=== PATIENT | female | born 1950 | race Caucasian/White ===

== ENCOUNTER 2022-04-02 00:30 | Inpatient (IN) | payer OTHER ==
[~2022-04-02] VITALS: Ht 162.6 cm; Wt 59.0 kg
[2022-04-02] MEDS ORDERED: CEFTRIAXONE 1 G in IV DEXTROSE 5% 50 ML IV ONE (00:45)
[2022-04-02] MEDS ORDERED: IV NORMAL SALINE 500 ML BAG IV ONE (00:45)
[2022-04-02 00:49] LABS: HEMATOCRIT 36.5 % (31.2-41.9); MEAN CORPUSCULAR HEMOGLOBIN 29.1 uug (24.7-32.8); MEAN CORPUSCULAR VOLUME 89.9 fL (75.5-95.3); PLATELET COUNT (AUTO) 304 K/uL (179-408)
--- NOTE | 2022-04-02 00:56 | NUR ---
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 #20g established in left ac, blood collected and sent to lab. Patient is alert and oriented x 3, Bedside EKG done awaiting MD review, side rails up will continue to monitor.
[2022-04-02 01:00] LABS: CARBON DIOXIDE 30 mmol/L (21-32); CHLORIDE 102 mmol/L (98-107); CREATININE 1.2 mg/dL (0.6-1.3); GLUCOSE 119 mg/dL (74-106); UREA NITROGEN, BLOOD 23 mg/dL (7-18)
[2022-04-02 01:08] LABS: ALANINE AMINOTRANSFERASE 30 U/L (14-59); ALKALINE PHOSPHATASE 112 U/L (50-136); ASPARTATE AMINOTRANSFERASE 23 U/L (15-37); BILIRUBIN,DIRECT 0.1 mg/dL (0.0-0.2); BILIRUBIN,TOTAL 0.2 mg/dL (0.2-1.0); TOTAL PROTEIN, SERUM 8.2 g/dL (6.4-8.2)
--- NOTE | 2022-04-02 01:23 | NUR ---
Off unit to CT via rney.
[2022-04-02] MEDS ORDERED: IV NS 1000 ML 1,000 ML IV ONE (01:30)
--- NOTE | 2022-04-02 02:02 | NUR ---
Patient returned to unit, IVF infusing as per order, urine collected and sent to lab. made aware of latic of 2.8.
[2022-04-02 02:45] LABS: *BILIRUBIN,URIN NEGATIVE (NEGATIVE); *COLOR,URINE YELLOW (YELLOW); *KETONES,URINE NEGATIVE (NEGATIVE); *UROBILINOGEN,URINE 0.2 E.U./dl (NORMAL); LEUKOCYTE ESTERASE ,URINE 1+ (NEGATIVE); NITRITE, URINE POSITIVE (NEGATIVE); UGLUCOSE NEGATIVE (NEGATIVE)
[2022-04-02 02:47] LABS: *BLOOD, URINE TRACE (NEGATIVE); *CLARITY,URINE HAZY (CLEAR)
[2022-04-02 02:48] LABS: BACTERIA,URINE MANY /HPF (NONE SEEN); SQUAMOUS EPITHELIAL CELL,UR FEW /HPF (NONE SEEN)
--- NOTE | 2022-04-02 03:18 | NUR ---
Incontinet of urine, changed, IVF almost complete. No voiced c/o no s/s of any discomfort noted.
--- NOTE | 2022-04-02 06:14 | NUR ---
Called [facility] for a panel call.
[2022-04-02] MEDS ORDERED: IMIPENEM/CILASTATIN SODIUM 1,000 MG in IV NORMAL SALINE 250 ML IV ONE (06:15)
--- NOTE | 2022-04-02 06:24 | NUR ---
Clinical Trial Assistant call for primaxin.
[2022-04-02] MEDS ORDERED: hydrALAZINE HCL 20 MG/1 ML VIAL IV PRN (06:30)
[2022-04-02] MEDS ORDERED: ONDANSETRON 4 MG/2 ML VIAL IV PRN (06:30)
[2022-04-02] MEDS ORDERED: IV NS 1000 ML 1,000 ML IV SCH (06:30)
[2022-04-02] MEDS ORDERED: ACETAMINOPHEN 325 MG TABLET PO PRN (06:30)
--- NOTE | 2022-04-02 09:25 | NUR ---
Received patient from ER via wheelchair assisted by ER staff. Alert but confused. Denies any pain or shortness of breath. Placed on heart monitor on Sinus Rhythm. Admission assessment initiated.
[2022-04-02] MEDS ORDERED: HEPARIN SODIUM,PORCINE 5,000 UNITS/ML VIAL ONE (09:33)
[2022-04-02] MEDS ORDERED: DOCUSATE SODIUM 100 MG CAPSULE PO ONE (09:33)
[2022-04-02] MEDS: DOCUSATE SODIUM 100 MG CAPSULE PO SCH ×2 (09:37→16:23)
[2022-04-02] MEDS: HEPARIN SODIUM,PORCINE 5,000 UNITS/ML VIAL SQ SCH ×3 (09:38→21:00)
--- NOTE | 2022-04-02 09:50 | NUR ---
Pt refused Heparin 5000units/ml. Explained risks and benefits, pt acknowledged and still refused.
--- NOTE | 2022-04-02 09:54 | NUR ---
Daughter of the pt, Tracy, called. Call back #[phone].
--- NOTE | 2022-04-02 09:56 | NUR ---
Called [facility]rd [facility] to give report. Assigned nurse is unavailable, will call back again in 30mins.
--- NOTE | 2022-04-02 10:33 | NUR ---
Pt in stable condition, V/S WNL, meals taken. Transported to [facility], RM 312, received by Nurse Kalyn LORENZANA.
[2022-04-02] MEDS: IV NS 1000 ML 1,000 ML IV PRN (11:31)
[2022-04-02] MEDS: MEROPENEM 1 G in IV NORMAL SALINE 100 ML IV SCH (11:39)
[2022-04-02 11:47] VITALS: BP 132/76
[2022-04-02] MEDS ORDERED: MEROPENEM 1 G in IV NORMAL SALINE 100 ML IV SCH (14:00)
[2022-04-02] MEDS ORDERED: LOSA1TAB39 PO (15:53)
[2022-04-02] MEDS ORDERED: ASPI-618 PO (15:53)
[2022-04-02] MEDS ORDERED: MULT-1201 PO (15:53)
[2022-04-02] MEDS ORDERED: GLIP5TAB13 PO (15:53)
[2022-04-02] MEDS ORDERED: CALC600T35 PO (15:53)
[2022-04-02] MEDS ORDERED: HYDR25TA4 PO (15:53)
[2022-04-02] MEDS ORDERED: METF-440 PO (15:53)
[2022-04-02] MEDS ORDERED: ATOR40TA PO (15:53)
[2022-04-02] MEDS ORDERED: MEMA10TA56 PO (15:53)
[2022-04-02] MEDS ORDERED: OMEP20CA15 PO (15:53)
[2022-04-02] MEDS ORDERED: DONE10TA44 PO (15:53)
[2022-04-02 16:23] VITALS: BP 110/52
--- NOTE | 2022-04-02 17:09 | NUR ---
Resting comfortably on bed, no signs of increasing confusion, afebrile. Continue IV fluids and IV antibiotics no reaction to antibiotics. Will continue tele monitoring and voiding pattern
[2022-04-02 20:40] VITALS: BP 131/67
[2022-04-03] MEDS: IV NS 1000 ML 1,000 ML IV PRN ×2 (00:19→19:59)
[2022-04-03] MEDS: MEROPENEM 1 G in IV NORMAL SALINE 100 ML IV SCH ×3 (00:20→23:11)
[2022-04-03 00:25] VITALS: BP 127/73
--- NOTE | 2022-04-03 03:57 | NUR ---
Pt voided. Bladder scan done at 0000 210 urine recorded..
[2022-04-03 04:15] VITALS: BP 128/73
--- NOTE | 2022-04-03 07:16 | NUR ---
Pt stable ,voiding, Bladder scan at 0630 is 233.
[2022-04-03 07:25] LABS: HEMATOCRIT 31.8 % (31.2-41.9); MEAN CORPUSCULAR HEMOGLOBIN 29.7 uug (24.7-32.8); MEAN CORPUSCULAR VOLUME 89.6 fL (75.5-95.3); PLATELET COUNT (AUTO) 273 K/uL (179-408)
[2022-04-03 07:39] LABS: BILIRUBIN,TOTAL 0.3 mg/dL (0.2-1.0); CREATININE 0.8 mg/dL (0.6-1.3); PHOSPHOROUS 3.3 mg/dL (2.5-4.9); POTASSIUM 3.7 mmol/L (3.5-5.1); TOTAL PROTEIN, SERUM 6.5 g/dL (6.4-8.2)
--- NOTE | 2022-04-03 08:00 | NUR ---
Received patient lying on bed awake, alert and oriented. No complains made, on room air sating @ 98%. Medications given, needs attended
[2022-04-03] MEDS: HEPARIN SODIUM,PORCINE 5,000 UNITS/ML VIAL SQ SCH ×2 (08:17→20:19)
[2022-04-03] MEDS: DOCUSATE SODIUM 100 MG CAPSULE PO SCH ×2 (08:17→16:39)
[2022-04-03 12:13] VITALS: BP 123/73
[2022-04-03] MEDS ORDERED: LOSA25TA27 PO (13:34)
--- NOTE | 2022-04-03 16:00 | NUR ---
Bladder scan done with 568 of urine, patient incontinent post void of 421 taken and recorded. In and out catheter done to empty the bladder with 400cc of urine collected. Patient stable and comfortable on bed. Denies any pains. plan continue telemetry monitoring SR. Continue with IV antibiotic and in and out as ordered.
[2022-04-03 16:58] VITALS: BP 144/67
[2022-04-03 20:00] VITALS: BP 131/64
[2022-04-03] MEDS: ATORVASTATIN 40 MG TABLET PO SCH (20:19)
[2022-04-03] MEDS: ASPIRIN EC 81 MG TABLET.DR PO SCH (20:19)
[2022-04-03] MEDS: MEMANTINE HCL 10 MG TABLET PO SCH (20:19)
[2022-04-03] MEDS: CALCIUM CARBONATE 600 MG TABLET PO SCH (20:20)
[2022-04-04] VITALS: BP 144/70
[2022-04-04 04:00] VITALS: BP 133/78
--- NOTE | 2022-04-04 06:39 | NUR ---
patient voided well throughout the night. refused bladder scan and refused am labs. on tele SR.
--- NOTE | 2022-04-04 07:51 | NUR ---
Sleeping, appears comfortable. IVF infusing. Tele SR
[2022-04-04] MEDS: DOCUSATE SODIUM 100 MG CAPSULE PO SCH ×2 (08:46→17:37)
[2022-04-04] MEDS: DONEPEZIL 10 MG TABLET PO SCH (08:46)
[2022-04-04] MEDS: LOSARTAN POTASSIUM 25 MG TABLET PO SCH (08:46)
[2022-04-04] MEDS: CALCIUM CARBONATE 600 MG TABLET PO SCH (08:46)
[2022-04-04] MEDS: glipiZIDE 5 MG TABLET PO SCH ×2 (08:46→17:37)
[2022-04-04] MEDS: ASPIRIN EC 81 MG TABLET.DR PO SCH (08:46)
[2022-04-04] MEDS: MEMANTINE HCL 10 MG TABLET PO SCH ×2 (08:47→20:59)
[2022-04-04] MEDS: HEPARIN SODIUM,PORCINE 5,000 UNITS/ML VIAL SQ SCH ×3 (08:47→21:00)
[2022-04-04] MEDS: IV NS 1000 ML 1,000 ML IV PRN ×2 (08:47→22:01)
[2022-04-04] MEDS: HYDROCHLOROTHIAZIDE 25 MG TABLET PO SCH (08:47)
--- NOTE | 2022-04-04 09:40 | NUR ---
Refused Heparin SQ. Initially refused lab draw, does not want needle sticks. Explained necessity, agreed to lab draw.
[2022-04-04 09:44] LABS: HEMATOCRIT 34.2 % (31.2-41.9); MEAN CORPUSCULAR HEMOGLOBIN 28.9 uug (24.7-32.8); PLATELET COUNT (AUTO) 294 K/uL (179-408)
[2022-04-04 09:54] LABS: CREATININE 0.9 mg/dL (0.6-1.3); MAGNESIUM 1.6 mg/dL (1.8-2.4); PHOSPHOROUS 3.3 mg/dL (2.5-4.9)
[2022-04-04 11:04] VITALS: BP 150/69
[2022-04-04] MEDS: MEROPENEM 1 G in IV NORMAL SALINE 100 ML IV SCH ×2 (11:28→23:41)
--- NOTE | 2022-04-04 12:30 | NUR ---
Spouse at bedside; spoke with daughter over the phone; explained plan of care. Adequate water intake given to patient
[2022-04-04] MEDS ORDERED: MAGNESIUM OXIDE 400 MG TABLET PO ONE (14:00)
--- NOTE | 2022-04-04 14:36 | NUR ---
Mg 1.6; magnesium po given as ordered
[2022-04-04 15:20] VITALS: BP 131/64
--- NOTE | 2022-04-04 17:07 | NUR ---
Continent, assisted to the bathroom 3 x with adequate urine output
[2022-04-04] MEDS: GLUCERNA SHAKE 237 ML CAN PO SCH (17:37)
--- NOTE | 2022-04-04 18:24 | NUR ---
Eating fairly, with adequate oral intake. Afebrile.
[2022-04-04 20:00] VITALS: BP 137/69
[2022-04-04] MEDS: ATORVASTATIN 40 MG TABLET PO SCH (20:59)
[2022-04-05] VITALS: BP 132/75
[2022-04-05 04:00] VITALS: BP 135/78
--- NOTE | 2022-04-05 06:30 | NUR ---
Patient slept intermittently, no noted acute distress. Sinus rhythm on tele. Denies chest pain. IV access to LAC intact and patent. Needs assessed and attended to.
[2022-04-05] MEDS: glipiZIDE 5 MG TABLET PO SCH ×2 (07:16→17:01)
[2022-04-05] MEDS: DOCUSATE SODIUM 100 MG CAPSULE PO SCH ×2 (10:07→17:01)
[2022-04-05] MEDS: CALCIUM CARBONATE 600 MG TABLET PO SCH (10:08)
[2022-04-05] MEDS: ASPIRIN EC 81 MG TABLET.DR PO SCH (10:08)
[2022-04-05] MEDS: MEMANTINE HCL 10 MG TABLET PO SCH (10:08)
[2022-04-05] MEDS: HEPARIN SODIUM,PORCINE 5,000 UNITS/ML VIAL SQ SCH (10:09)
[2022-04-05] MEDS: DONEPEZIL 10 MG TABLET PO SCH (10:16)
[2022-04-05] MEDS: HYDROCHLOROTHIAZIDE 25 MG TABLET PO SCH (10:17)
[2022-04-05] MEDS: GLUCERNA SHAKE 237 ML CAN PO SCH (10:17)
[2022-04-05] MEDS: LOSARTAN POTASSIUM 25 MG TABLET PO SCH (10:17)
[2022-04-05 10:44] LABS: MEAN CORPUSCULAR HEMOGLOBIN 29.5 uug (24.7-32.8); MEAN CORPUSCULAR VOLUME 89.2 fL (75.5-95.3); PLATELET COUNT (AUTO) 292 K/uL (179-408)
[2022-04-05 11:02] LABS: CREATININE 0.9 mg/dL (0.6-1.3); MAGNESIUM 1.8 mg/dL (1.8-2.4); PHOSPHOROUS 3.4 mg/dL (2.5-4.9); POTASSIUM 3.7 mmol/L (3.5-5.1)
[2022-04-05] MEDS: MEROPENEM 1 G in IV NORMAL SALINE 100 ML IV SCH (11:02)
[2022-04-05 11:26] VITALS: BP 143/72
[2022-04-05] MEDS ORDERED: CEPH250C PO (13:26)
[2022-04-05 15:05] VITALS: BP 150/83
--- NOTE | 2022-04-05 18:30 | NUR ---
Pt left for her home via ambulance. Pt stable, A&Ox2, no s/s of distress noted, no sob.
== END 2022-04-05 18:30 | disposition home health service (06) | DRG 689 ==
LOC: ER 00:34 → TELE3 09:25 → MEDSURG3 04-05 11:05
PROVIDERS: ADMIT Nurse Practitioner Acute Care; ATTEND Nurse Practitioner Acute Care
DX: N39.0 Urinary tract infection, site not specified (principal); G93.41 Metabolic encephalopathy; N17.0 Acute kidney failure with tubular necrosis; E87.20 Acidosis, unspecified; E11.9 Type 2 diabetes mellitus without complications; R33.9 Retention of urine, unspecified; I10 Essential (primary) hypertension; W06.XXXA Fall from bed, initial encounter; Y93.9 Activity, unspecified; Y92.009 Unspecified place in unspecified non-institutional (private) residence as the place of occurrence of the external cause; Z79.84 Long term (current) use of oral hypoglycemic drugs; B96.1 Klebsiella pneumoniae [K. pneumoniae] as the cause of diseases classified elsewhere; Z79.82 Long term (current) use of aspirin
CPT/HCPCS: 36415; 70450; 71045; 72125; 83605; 83735; 84100; 84484; 85025; 87040; 93005; A4663; C1758; G0378; J1644; J2185; J7040